=== PATIENT | female | born 1990 | race Caucasian/White ===

== ENCOUNTER 2017-03-27 10:25 | Emergency (ER) | payer OTHER ==
[~2017-03-27] VITALS: Ht 165.1 cm; Wt 99.8 kg
[2017-03-27] MEDS ORDERED: PRENATA CHEWAB1 EACH PO (10:49)
[2017-03-27] MEDS ORDERED: TAMIFLU75 MG PO (13:27)
[2017-03-27] MEDS ORDERED: ZOFRAN ODT4 MG PO (13:27)
== END 2017-03-27 13:40 | disposition home or self-care (01) ==
LOC: ED 10:25
DX: O99.512 Diseases of the respiratory system complicating pregnancy, second trimester (principal); J11.1 Influenza due to unidentified influenza virus with other respiratory manifestations; O99.332 Smoking (tobacco) complicating pregnancy, second trimester; F17.200 Nicotine dependence, unspecified, uncomplicated; Z79.899 Other long term (current) drug therapy; Z3A.20 20 weeks gestation of pregnancy
CPT/HCPCS: 80048; 81001; 85025; 87502; 96361; 96374; 99283; J2405; J7030

== ENCOUNTER 2017-04-03 07:10 | Emergency (ER) | payer OTHER ==
[~2017-04-03] VITALS: Ht 165.1 cm; Wt 99.8 kg
[~2017-04-03 07:10] MED LIST: PRENATA CHEWAB1 EACH PO; TAMIFLU75 MG PO; ZOFRAN ODT4 MG PO
[2017-04-03] MEDS ORDERED: GUAIFENESIN AC473 ML PO (07:32)
[2017-04-03] MEDS ORDERED: NORCO 5-325 TA1 EACH PO (08:12)
== END 2017-04-03 08:28 | disposition home or self-care (01) ==
LOC: ED 07:10
DX: O99.89 Other specified diseases and conditions complicating pregnancy, childbirth and the puerperium (principal); R07.81 Pleurodynia; O99.332 Smoking (tobacco) complicating pregnancy, second trimester; F17.200 Nicotine dependence, unspecified, uncomplicated; Z90.89 Acquired absence of other organs; Z79.899 Other long term (current) drug therapy; Z3A.21 21 weeks gestation of pregnancy
CPT/HCPCS: 99283

== ENCOUNTER 2017-08-07 12:58 | Inpatient (IN) | payer OTHER ==
[~2017-08-07] VITALS: Ht 165.1 cm; Wt 105.0 kg
--- NOTE | ~2017-08-07 | OR ---
[facility] [address], [place] [address] Draft DATE OF OPERATION: 08/09/2017 SURGEON: Anam Ohara DO PREOPERATIVE DIAGNOSES: 1. Intrauterine at 39 and 4 weeks gestation. 2. History of laminectomy. 3. Desires primary section. 4. Tobacco use in . 5. Marijuana use in . POSTOPERATIVE DIAGNOSES: 1. Intrauterine at 39 and 4 weeks gestation. 2. History of laminectomy. 3. Desires primary section. 4. Tobacco use in . 5. Marijuana use in . ANESTHESIA: General. ESTIMATED BLOOD LOSS: 700 mL. COMPLICATIONS: None. FINDINGS: Viable male born in the NELSON position with nuchal cord x1. Apgars 8 and 9 at 1 and 5 minutes respectively. Weight is . Normal tubes, ovaries, and uterus noted. CERTIFIED DIETARY MANAGER: Joao López MD INDICATIONS: Ms. Pagan is a pleasant 26-year-old, G2, P 0-0-1-0 with an IUP at 39 weeks 4 days gestation, presents to Labor and Delivery for scheduled primary elective section. The patient saw Dr. Odalis Colin for the majority of her and transferred to ks late in the third trimester. is complicated by history of PATIENT NAME: SELINA PAGAN OPERATIVE REPORT DATE OF : [birth year] REPORT #: [id number] PHYSICIAN: ANAM OHARA DO PCP: ODALIS COLIN MD REPORT IS CONFIDENTIAL AND NOT TO BE RELEASED WITHOUT AUTHORIZATION [facility] [address], [place] [address] Draft multiple low back surgeries including laminectomies for chronic low back issues. The patient strongly desires to avoid vaginal delivery or epidural as well as spinal anesthesia due to her prior surgeries. She strongly requests primary elective delivery under general anesthesia. These issues were discussed in detail with the patient. Records were reviewed and we discussed the risks and benefits. After the discussion, the patient still strongly feels that she would like a primary . Consents were signed. All questions were answered to the best of my ability. TECHNIQUE: The patient was taken to the operating room where a time-out was performed to confirm correct patient and correct procedure. The patient was prepped and draped in the supine position with a bump under the right hip. A Cochran catheter was inserted. ICPs were on and running and Ancef 2 g preoperatively was given per SKIP protocol. No heparin was indicated. General anesthesia was adequately established and a Pfannenstiel skin incision was made and carried down to the fascia. The fascia was nicked in the midline and fascial incision was extended bilaterally using Morales scissors. The fascia was grasped with Salome clamps, elevated, and the underlying rectus dissected off bluntly and sharply. The rectus muscles were bluntly divided in the midline and the peritoneum was bluntly entered. Peritoneal incision was extended cephalad and caudally using blunt dissection. An Dagoberto self retractor was placed. The lower uterine segment was identified and hysterotomy was performed using a surgical scalpel. The amniotic sac was ruptured and clear fluid was noted. The surgeon's hand was placed in the uterine cavity. The head elevated and lifted the maternal abdomen. Nuchal cord x1 was noted and loose. Decision was made to deliver through this. The remainder of the delivered easily with the assistance of fundal pressure. The cord was reduced and the was vigorous and cried. Oral and nasopharynx were bulb suctioned. The cord was doubly clamped and cut and the handed to the waiting pediatric team for further care. Cord blood was obtained for routine analysis and the placenta was then expressed intact with a centrally inserted three-vessel cord. The uterus was cleared of any remaining products of conception and hysterotomy was repaired using 0 Vicryl in a running locked suture. Pitocin was given after delivery of the placenta to enhance uterine involution. A second vertical imbricating suture of 0 Vicryl was applied with good imbrication noted. A small amount of oozing was noted and this was made hemostatic using Bovie electrocautery and a [id number] 0 Vicryl suture. The uterus, tubes, and ovaries were examined and found to be normal. The pelvis was irrigated and found to be hemostatic. The Dagoberto retractor was removed and again the hysterotomy was hemostatic. ACell sheet was applied to the lower uterine segment and the peritoneum was reapproximated using 2-0 Vicryl in a running nonlocked stitch. The rectus muscles were then loosely reapproximated using 0 Vicryl and three interrupted simple sutures. The rectus was then made hemostatic using electrocautery with the Bovie and Lesli powder. After hemostasis was ensured, ACell powder was applied to the rectus as well. The fascia was reapproximated using 0 Vicryl in a running nonlocked manner. Subcutaneous PATIENT NAME: SELINA PAGAN OPERATIVE REPORT DATE OF : [birth year] REPORT #: [id number] PHYSICIAN: ANAM OHARA DO PCP: ODALIS COLIN MD REPORT IS CONFIDENTIAL AND NOT TO BE RELEASED WITHOUT AUTHORIZATION [address] [place] [address] Draft tissue was made hemostatic using electrocautery with the Bovie and Lesli powder. The subcuticular space was then reapproximated using 3-0 Vicryl in a running nonlocked suture. Skin was reapproximated using surgical yao. Local anesthetic 0.25% Marcaine with epinephrine was then injected circumferentially around the Pfannenstiel incision for a total of 19 mL. The uterus was then Crede'd and minimal blood loss was noted. The patient was then awoken and taken to the PACU in good and stable condition. Sponge, needle, and instrument counts were correct x2 at the end of the procedure. Dr. López was present and participated in all portions of the procedure. Anam Ohara DO JDW/ALEXIS /[id number] Copies: ~ PATIENT NAME: SELINA PAGAN OPERATIVE REPORT DATE OF : [birth year] REPORT #: [id number] PHYSICIAN: ANAM OHARA DO PCP: ODALIS COLIN MD REPORT IS CONFIDENTIAL AND NOT TO BE RELEASED WITHOUT AUTHORIZATION
[~2017-08-07 12:58] MED LIST changes: +GUAIFENESIN AC473 ML PO; +NORCO 5-325 TA1 EACH PO
--- NOTE | 2017-08-09 08:39 | NUR ---
08/09/17 0839 Jaimie Bhandari 0823 PATIENT ARRIVES TO PACU AWAKE, BUT DROWSY. RESTING QUIETLY WITH EYES CLOSED. REPORTS SHE IS UNCOMFORTABLE, RATES PAIN AT 8/10. RESP EVEN AND UNLABORED, ON ROOM AIR AT 96-98%. DENIES NAUSEA.
== END 2017-08-11 13:40 | disposition home or self-care (01) | DRG 765 ==
LOC: FBC 08-09 05:20
PROVIDERS: ADMIT Obstetrics & Gynecology
PROC: 10D00Z1 Extraction of Products of Conception, Low, Open Approach (ICD-10-PCS; principal; 2017-08-09 06:45)
DX: O99.89 Other specified diseases and conditions complicating pregnancy, childbirth and the puerperium (principal); O99.354 Diseases of the nervous system complicating childbirth; M54.9 Dorsalgia, unspecified; O99.334 Smoking (tobacco) complicating childbirth; F17.210 Nicotine dependence, cigarettes, uncomplicated; G89.29 Other chronic pain; O69.81X0 Labor and delivery complicated by cord around neck, without compression, not applicable or unspecified; O99.324 Drug use complicating childbirth; F12.90 Cannabis use, unspecified, uncomplicated; Z3A.39 39 weeks gestation of pregnancy; Z98.890 Other specified postprocedural states; Z37.0 Single live birth
CPT/HCPCS: 01961; 36415; 85027; 99406; C1763; J0330; J0690; J1100; J1644; J1885; J2270; J2405; J2590; J2704; J2765; J3010; J7120

== ENCOUNTER 2018-04-27 14:45 | Emergency (ER) | payer OTHER ==
[~2018-04-27] VITALS: Ht 165.1 cm; Wt 104.3 kg
[~2018-04-27 14:45] MED LIST changes: +SLEEP AID25 M1 PO; +VITAMIN B-625 MG PO
--- OUTSIDE RECORDS SUMMARY | 2018-04-27 14:48 | XMS ---
PreManage Notification: SELINA PAGAN Security Safety Representative Events No recent Security Events currently on file CRITERIA MET - [facility] - Has Care Guidelines CARE PROVIDERS ROSHNI TORRES Student in an Organized Health Care 02/21/2018-Current Education/Training Program PHONE: [phone] ANAM GUERRERO Chiropractor 02/21/2018-Current PHONE: [phone] Sophie has no Care Guidelines for this patient. Care History Medical/Surgical 02/21/2018 [facility] - Patient is currently established with [facility]. If patient is seen in the ED during business hours. Please contact CHWs at [facility]. Care Recommendation: This patient has had 5 or more Emergency Department visits in the last 12 months.\T\nbsp; Patient requires education on the scope and purpose of the ED as an acute care provider not a Primary Care Provider and should not be utilized for chronic conditions.\T\nbsp; These are guidelines and the provider should exercise clinical judgment when providing care. E.D. VISIT COUNT (12 MO.) [address] [facility] TOTAL 2 NOTE: Visits indicate total known visits. ED/UCC VISIT TRACKING (12 MO.) 04/27/2018 14:46 [facility] [place] TYPE: Emergency COMPLAINT: - BACK PAIN,NON INJURY 02/21/2018 08:45 [facility] [place] TYPE: Emergency COMPLAINT: - VOMITING/13 WEEKS DIAGNOSES: - 13 weeks gestation of - Nicotine dependence, cigarettes, uncomplicated - Smoking (tobacco) complicating , first trimester - Other intermediate accountant (current) drug therapy - Vomiting of , unspecified - Mild hyperemesis gravidarum INPATIENT VISIT TRACKING (12 MO.) 08/09/2017 05:[address] [facility] [place] TYPE: [facility] COMPLAINT: - PRIMARY LOW TRANSVERSE C SECTION DIAGNOSES: - Encounter for delivery without indication - Other specified diseases and conditions complicating , childbirth and the puerperium - Other chronic pain - Cannabis use, unspecified, uncomplicated - Diseases of the nervous system complicating childbirth - Dorsalgia, unspecified - Drug use complicating childbirth - Smoking (tobacco) complicating childbirth - Single live - Labor and delivery complicated by cord around neck, without compression, not applicable or unspecified - Other specified postprocedural states - Nicotine dependence, cigarettes, uncomplicated - 39 weeks gestation of [email or web address]
[2018-04-27] MEDS ORDERED: PREDNISONE20 MG PO (15:59)
== END 2018-04-27 16:35 | disposition home or self-care (01) ==
LOC: ED 14:45
DX: M54.42 Lumbago with sciatica, left side (principal); Z87.891 Personal history of nicotine dependence; Z79.899 Other long term (current) drug therapy
CPT/HCPCS: 96372; 99283-25; J1885; J7512

== ENCOUNTER 2018-08-14 09:11 | Inpatient (IN) | payer OTHER ==
[~2018-08-14] VITALS: Ht 165.1 cm; Wt 115.0 kg
--- NOTE | ~2018-08-14 | OR ---
[facility] [address] [place], [place] [address] Draft DATE OF OPERATION: 08/21/2018 SURGEON: Anam Ohara DO PREOPERATIVE DIAGNOSES: 1. Intrauterine at 39 weeks 0 days gestation. 2. History of prior section. 3. Obesity, complicating . 4. History of prior lumbar surgery, complicating . POSTOPERATIVE DIAGNOSES: 1. Intrauterine at 39 weeks 0 days gestation. 2. History of prior section. 3. Obesity, complicating . 4. History of prior lumbar surgery, complicating . PROCEDURE PERFORMED: Repeat low transverse delivery. SUPERINTENDENT STATIONS: Joao López MD ANESTHESIA: Spinal. ESTIMATED BLOOD LOSS: 500 mL. COMPLICATIONS: None. SPECIMEN: None. FINDINGS: Viable female weighing 7 pounds 0 ounces, born in the ROT position with Apgars of 3 and 9 at one and five minutes respectively. Generally normal uterus, tubes, and ovaries. However, the lower uterine segment is somewhat thin, consistent with prior delivery and a nonexpanding lower segment hematoma noted. PATIENT NAME: SELINA PAGAN OPERATIVE REPORT DATE OF : [birth year] REPORT #: [id number] PHYSICIAN: ANAM OHARA DO PCP: ROSHNI TORRES MD REPORT IS CONFIDENTIAL AND NOT TO BE RELEASED WITHOUT AUTHORIZATION [address] [address] Draft INDICATIONS: Ms. Pagan is a pleasant 27-year-old white female, who presents for scheduled repeat low transverse delivery. complicated by prior , history of chronic low back pain, status post laminectomy x2, obesity. The patient was scheduled for repeat low transverse delivery at 39 weeks' gestation. She had previously requested general anesthesia after an extensive conversation regarding risks and benefits. However, today after meeting with anesthesia, the patient does request spinal anesthesia. Risks, benefits, and alternatives were discussed in detail with the patient. The patient understood and wishes to proceed with procedure. DESCRIPTION OF PROCEDURE: The patient was taken to the operating room, where a timeout was performed for correct patient, correct procedure. Spinal anesthesia was adequately established. The patient was then prepped and draped in supine position with a bump under her right hip. Cochran catheter was inserted. ICPs were on and running and the patient received Ancef 2 g preoperatively per skip protocol. No heparin was indicated. After confirming that spinal anesthesia was adequate, a Pfannenstiel skin incision was made incising through the prior incision. Subcu was divided down to the fascia. The fascia was nicked in the midline. Fascial incision was extended bilaterally using sharp dissection with Morales scissors. The underlying rectus muscles were then dissected bluntly and sharply and the rectus muscle divided in the midline. The peritoneum was grasped with hemostats, elevated, and the peritoneum was incised sharply. Peritoneal incision was extended sharply and bluntly in a cephalad-caudad manner. The uterus was identified. The lower uterine segment was examined and found to be fairly normal, although somewhat thin. No significant pelvic adhesions were appreciated. An Dagoberto self retractor was placed and hysterotomy was performed using a surgical scalpel. Hysterotomy was then extended bilaterally using blunt dissection and the amnion ruptured. The surgeon's hand was placed in the lower uterine segment. The head flexed and elevated in the abdomen, delivered with the assistance of fundal pressure. No nuchal cord was noted and the 's head delivered easily. The shoulders then delivered easily and the was noted to be somewhat limp at . The cord was doubly clamped and cut and the handed off quickly to the waiting pediatric team for further care. Cord blood was obtained for routine analysis as well as dissection of the cord. The placenta was then manually expressed intact with a centrally inserted three-vessel cord. Remaining products of conception and clot removed from the uterus and the uterus was noted to be firm with the addition of Pitocin per protocol. The hysterotomy was then repaired using 0 Vicryl in a running locked manner. A 2nd imbricating suture of 0 Vicryl was applied in a vertical manner with good imbrication and reapproximation. A moderate sized hematoma was noted in the lower uterine segment approximately 5 cm in diameter. This was found to be somewhat expanding and taut. The peritoneum was elevated and incised using Metzenbaum scissors and peritoneum was pushed down below the expanding hematoma. The hematoma was then made hemostatic using 0 Vicryl in a [id number]-tv-ywosu suture x2, at PATIENT NAME: SELINA PAGAN OPERATIVE REPORT DATE OF : [birth year] REPORT #: [id number] PHYSICIAN: ANAM OHARA DO PCP: ROSHNI TORRES MD REPORT IS CONFIDENTIAL AND NOT TO BE RELEASED WITHOUT AUTHORIZATION [facility] [address] [place] [id number] Draft which time the hematoma was noted to reduce in size, nonexpanding, and no longer be taut. When hemostasis was confirmed, the pelvis was irrigated using fluid, and again found to be hemostatic. The fallopian tubes and ovaries were noted to be normal. The uterus otherwise appeared normal. The Dagoberto self retractor was removed and the lower uterine segment again examined, and found to be hemostatic and the hematoma nonexpanding. ACell sheet was applied to the lower uterine segment and the peritoneum was reapproximated using 2-0 Vicryl. The rectus sheath was then reapproximated using 0 Vicryl in three interrupted sutures. The rectus was made hemostatic with combination of Bovie electrocautery, 2-0 suture, and Lesli powder. ACell powder was then applied to the rectus sheath once it had been irrigated and found to be hemostatic. The fascia was then reapproximated using 0 Vicryl in a running nonlocked manner. Subcutaneous space was reapproximated using 2-0 Vicryl in a running nonlocked manner. Skin was then reapproximated using surgical yao. The uterus was crede'd for scant amount of blood and the patient was taken to PACU in good and stable condition. Sponge, needle, and instrument count was correct x2 at the end of the procedure. Dr. López was present and participated in all portions of procedure. DO DAVID Cardenas/ALEXIS /[id number] Copies: ~ PATIENT NAME: SELINA PAGAN OPERATIVE REPORT DATE OF : [birth year] REPORT #: [id number] PHYSICIAN: ANAM OHARA DO PCP: ROSHNI TORRES MD REPORT IS CONFIDENTIAL AND NOT TO BE RELEASED WITHOUT AUTHORIZATION
[~2018-08-14 09:11] MED LIST changes: +PREDNISONE20 MG PO
--- NOTE | 2018-08-21 14:24 | NUR ---
08/21/18 1424 Jamarcus Yousif 1405) ALERT AND ORIENTED. IV PATENT AND DRESSING CDI. EDUCATION GIVEN AND PLAN OF CARE DISCUSSED. 1420) MOM BREAST FEEDING. HEAD OF BED IS ELEVATED TO 30%. NO PAIN NOTED.
--- NOTE | 2018-08-22 19:30 | PR ---
[facility] [address] [facility] [place] [facility] [place], [place] [address] Signed PP Progress Notes Datetime Report Generated by CPN: 08/22/2018 19:30 SUBJECTIVE: [id number] Pain: Within normal limits Nausea/Vomiting: Denies Flatus: Yes Bowel Movement: No Vital Signs: [id number] Vital Signs: Reviewed; Within Normal Limits EXAM: [id number] Cardiovascular: Normal Respiratory: Normal Abdomen/Uterus: Normal Lochia: Normal Vulva/Perineum: Not Done Breasts: Not Done CVA Tenderness: Normal Extremities: Normal Incision: Normal Progress: Normal Exam Comments: Fundus firm U-2 nontender, no s/sx infection IMPRESSION/PLAN/PROCEDURES: [id number] Impression: Normal progression Plan: Continue present management Progress Notes: Pt seen and examined. Doing well. Ambulating, voiding, and tolerating full diet. Pain and lochia minimal. well. No fevers/chills/other concerns. Desires d/c home tomorrow. Continue routine pp care Signing Physician: Anam Ohara DO Copies: ~ *Electronically Signed* 08/22/181929 ANAM OHARA DO PATIENT NAME: SELINA PAGAN PROGRESS NOTE DATE OF : [birth year] PHYSICIAN: ANAM OHARA DO RPT #: [id number] REPORT IS CONFIDENTIAL AND NOT TO BE RELEASED WITHOUT AUTHORIZATION
--- NOTE | 2018-08-23 07:54 | PR ---
[facility] [address] [facility] [place], [place] [address] Signed PP Progress Notes Datetime Report Generated by CPN: 08/23/2018 07:54 SUBJECTIVE: [id number] Pain: Within normal limits Nausea/Vomiting: Denies Flatus: Yes Bowel Movement: No Vital Signs: [id number] Vital Signs: Reviewed Notable Details: No sustained elevated BPs EXAM: [id number] Cardiovascular: Normal Respiratory: Normal Abdomen/Uterus: Normal Lochia: Normal Vulva/Perineum: Not Done Breasts: Not Done CVA Tenderness: Normal Extremities: Normal Incision: Normal Progress: Normal Exam Comments: Fundus firm U-2 nontender. Incision healing well. IMPRESSION/PLAN/PROCEDURES: [id number] Impression: Normal progression Plan: Discharge Progress Notes: Pt seen and examined. Doing well. Ambulating, voiding, and tolerating full diet. Pain and lochia minimal. Signing Physician: Anam Ohara DO Copies: ~ *Electronically Signed* 08/23/18 0754 ANAM OHARA DO PATIENT NAME: SELINA PAGAN PROGRESS NOTE DATE OF : [birth year] PHYSICIAN: ANAM OHARA DO RPT #: [id number] REPORT IS CONFIDENTIAL AND NOT TO BE RELEASED WITHOUT AUTHORIZATION
== END 2018-08-23 13:45 | disposition home or self-care (01) | DRG 787 ==
LOC: FBC 08-21 09:15
PROVIDERS: ADMIT Obstetrics & Gynecology
PROC: 10D00Z1 Extraction of Products of Conception, Low, Open Approach (ICD-10-PCS; principal; 2018-08-21 11:00)
DX: O34.211 Maternal care for low transverse scar from previous cesarean delivery (principal); O99.324 Drug use complicating childbirth; O99.354 Diseases of the nervous system complicating childbirth; N85.8 Other specified noninflammatory disorders of uterus; Z3A.39 39 weeks gestation of pregnancy; Z37.0 Single live birth; O32.2XX0 Maternal care for transverse and oblique lie, not applicable or unspecified; O99.89 Other specified diseases and conditions complicating pregnancy, childbirth and the puerperium; M54.5 Low back pain; O99.214 Obesity complicating childbirth; E66.9 Obesity, unspecified; O69.82X0 Labor and delivery complicated by other cord entanglement, without compression, not applicable or unspecified; F12.90 Cannabis use, unspecified, uncomplicated; G89.29 Other chronic pain; O99.334 Smoking (tobacco) complicating childbirth; F17.210 Nicotine dependence, cigarettes, uncomplicated
CPT/HCPCS: 01961; 36415; 85027; J0131; J0690; J1650; J1885; J2274; J2405; J2590; J7120

== ENCOUNTER 2022-03-24 11:20 | Emergency (ER) | payer MEDICARE, OTHER ==
[~2022-03-24] VITALS: Ht 165.1 cm; Wt 104.3 kg
[~2022-03-24 11:20] MED LIST changes: +BUSPIRONE HCL7.5 MG PO; +CYMBALTA60 MG PO; +GABAPENTIN100 MG PO; +HYDROCODON-ACE1 EA10 PO; +IBUPROFEN600 MG PO; +WOMEN'S DAILY1 EACH PO
--- OUTSIDE RECORDS SUMMARY | 2022-03-24 11:24 | XMS ---
PreManage Notification: SELINA PAGAN Security Asphalt Spreader Operator Events No recent Security Events currently on file CRITERIA MET - [facility] CARE PROVIDERS ROSHNI TORRES [facility] 02/21/2018-Current PHONE: [phone] ANAM GUERREROpractor 02/21/2018-Current PHONE: [phone] Care Guidelines exist for the following facilities: [facility] ( 04/26/2020 ) Care History Medical/Surgical 02/21/2018 [facility] - Patient is currently established with [facility]. If patient is seen in the ED during business hours. Please contact CHWs at [facility]. Care Recommendation: This patient has had [...] providing care. E.D. VISIT COUNT (12 MO.) 1 [facility] TOTAL 1 NOTE: Visits indicate total known visits. ED/UCC VISIT TRACKING (12 MO.) 03/24/2022 11:22 [facility] [place] TYPE: Emergency COMPLAINT: - ABD PAIN INPATIENT VISIT TRACKING (12 MO.) No inpatient visits to display in this time frame [email or web address]
[2022-03-24] MEDS ORDERED: BUPRENORPHINE HC8 MG SL (12:38)
[2022-03-24] MEDS ORDERED: ATOMOXETINE HCL25 MG PO (12:38)
[2022-03-24] MEDS ORDERED: PRAZOSIN HCL1 MG PO (12:38)
[2022-03-24] MEDS ORDERED: TOPIRAMATE50 MG PO (12:38)
[2022-03-24] MEDS ORDERED: DULOXETINE HCL60 MG PO (12:39)
[2022-03-24] MEDS ORDERED: HYDROXYZINE HCL25 MG PO (12:39)
[2022-03-24] MEDS ORDERED: HYDROCODON-ACE1 EA10 PO (14:47)
[2022-03-24] MEDS ORDERED: ONDANSETRON ODT4 MG PO (14:48)
== END 2022-03-24 15:22 | disposition home or self-care (01) ==
LOC: ED 11:20
DX: N83.201 Unspecified ovarian cyst, right side (principal); Z79.899 Other long term (current) drug therapy
CPT/HCPCS: 36415; 74177; 80053; 81003; 83690; 84703; 85025; 96375; 99284-25; J1885; J2405; Q9967

== ENCOUNTER 2023-03-04 18:45 | Observation (INO) | payer MEDICARE, OTHER ==
[~2023-03-04] VITALS: Ht 165.1 cm; Wt 98.9 kg
--- NOTE | ~2023-03-04 | OR ---
[facility] [address], [place] [address] Draft DATE OF OPERATION: 03/05/2023 SURGEON: Stephy Rios MD PREOPERATIVE DIAGNOSES: 1. Acute calculous cholecystitis. 2. Obesity. POSTOPERATIVE DIAGNOSES: 1. Acute calculous cholecystitis. 2. Obesity. PROCEDURE: 1. Laparoscopic cholecystectomy with intraoperative cholangiogram. 2. Surgeon-directed fluoroscopy. ANESTHESIA: General endotracheal, Stephy Inman CRNA and local 10 mL of 0.25% Marcaine with epinephrine. INDICATION: This 32-year-old obese woman presented to the emergency room yesterday with complaints of epigastric and right subcostal pain upper tract and nausea and vomiting. She is found to have tenderness in right subcostal area. She previously was diagnosed with gallstones on February 15, 2023, under the direction of GERA Smith. A plan for cholecystectomy was not yet outlined from what I gather. She was admitted and given intravenous fluid resuscitation, IV antibiotics, some parenteral pain medication and is now ready to undergo cholecystectomy preferred by laparoscopic approach. The risk of bleeding, infection, bile duct injury, need for open procedure and other unforeseen complications was reviewed with her in detail. She understands and wished to proceed. FINDINGS: The gallbladder was thickened and inflamed. There was no sign of gangrene or necrosis. The liver was normal. Cholangiogram was normal as well with no filling defects or other abnormality. Complete cholecystectomy was accomplished safely. The gallbladder had multiple yellow multifaceted gallstones and gallstone debris. Of note, the cystic duct on cholangiogram inserted to the left side of the common bile duct and was anomalous in that regard, but there were no filling defects or other problems. DESCRIPTION OF PROCEDURE: PATIENT NAME: SELINA PAGAN OPERATIVE REPORT DATE OF : [birth year] REPORT #: [id number] PHYSICIAN: STEPHY RIOS MD PCP: YAIMA GARZA NP REPORT IS CONFIDENTIAL AND NOT TO BE RELEASED WITHOUT AUTHORIZATION [facility] [address], [place] [address] Draft The patient was brought to the operating room, given a general endotracheal anesthetic. Preoperative antibiotic Ancef was given in the operating room based on scheduled dosing. After satisfactory general endotracheal anesthesia, the abdomen was prepared with a chlorhexidine solution and draped sterilely. She had previous umbilical hernia with implantation of mesh. An infraumbilical incision was made 2 cm away from the inferior aspect of the incision from the past. The abdomen was entered with an open Molina cannula technique and pneumoperitoneum achieved to a level of 14 mmHg with carbon dioxide gas. Intra-abdominal inspection showed no sign of ascites or carcinomatosis. There was mild scarring of the surface of the transverse colon. The liver itself was surprisingly normal without sign of fatty infiltration. Three additional trocars were placed in usual configuration in the subxiphoid, right midclavicular, and right anterior axillary line. Gallbladder was grasped and elevated cephalad. Adhesions to the undersurface were taken down with blunt electrocautery dissection revealing underlying inflamed gallbladder. Lateral retraction of the gallbladder allowed for dissection of the triangle of Calot, dissecting free ultimately identifying the cystic duct and cystic arterial branches. A clip was applied across gallbladder cystic duct junction and a transverse choledochotomy made in the cystic duct. Egress of clear bile was noted. Using the Sanders type cholangiocatheter, intraoperative cholangiography was undertaken showing free flow of contrast in biliary tree with prompt emptying into the duodenum. The cystic duct was anonymously inserted into the medial aspect of the common bile duct. Additional injection allowed for visualization of common hepatic duct and biliary radicles. Photographs were taken. Catheter was removed and the cystic duct was triply clipped and divided. The gallbladder was then dissected free in a retrograde fashion using electrocautery. Gallbladder was placed in an endobag and extracted through the infraumbilical port site opened on the back table and found to have dominant large cholesterol yellow stone, but multiple shards of stone and debris as well. There was no sign of neoplasm. Irrigation was undertaken in subhepatic space with no sign of bile leak, bleeding or other problems. The trocars removed under direct visualization showing no sign of bleeding. The infraumbilical fascial incision was reapproximated with interrupted 0 Vicryl suture and additional application of a running 0 PDS suture. 10 mL of 0.25% Marcaine with epinephrine injected locally. Subcutaneous tissue of the infraumbilical incision was reapproximated with interrupted 3-0 Vicryl and skin closed with interrupted 3-0 Vicryl. Steri-Strips were applied to each site. The patient was ultimately extubated and transferred to the recovery room in good condition having suffered no complication. Sponge, needle, and instrument counts reported as correct x3. Stephy Rios MD PATIENT NAME: SELINA PAGAN OPERATIVE REPORT DATE OF : [birth year] REPORT #: [id number] PHYSICIAN: STEPHY IROS MD PCP: YAIMA GARZA NP REPORT IS CONFIDENTIAL AND NOT TO BE RELEASED WITHOUT AUTHORIZATION [facility] [address] [place] [place] [address] Draft /[facility] /[id number] cc: GERA Smith MD [place] [facility] Copies: ~ PATIENT NAME: SELINA PAGAN OPERATIVE REPORT DATE OF : [birth year] REPORT #: [id number] PHYSICIAN: STEPHY RIOS MD PCP: YAIMA GARZA NP REPORT IS CONFIDENTIAL AND NOT TO BE RELEASED WITHOUT AUTHORIZATION
--- NOTE | ~2023-03-04 | HP ---
[facility] [address], [place] [address] Draft ADMISSION DATE: 03/04/2023 REASON FOR ADMISSION: Acute calculous cholecystitis. HISTORY OF PRESENT ILLNESS: This obese, BMI 38.3, white woman presented to the emergency room [facility] on with 3 hours complaints of right upper abdominal pain and associated nausea and vomiting. The patient was diagnosed on or about February 15 by GERA Smith to have gallstones related to similar such symptoms. The patient was under the impression that she should "watch her diet." The idea of surgery was uncertain to the patient. After thorough evaluation by Dr. De La Torre upon presentation included lab studies and repeat ultrasound, which confirmed a single large gallstone with thickening of the gallbladder wall. A CBC showing a white count of 13.2, hematocrit of 36.8, platelets of 232,000. A Chem profile was essentially normal, though her potassium slightly low at 3.3. Magnesium was 1.6. Liver enzymes mildly elevated. AST 40, ALT 90, bilirubin 0.2, alkaline phosphatase 71. Her lipase was 29. A toxicology screen was obtained, but results not yet available as there was no specimen received. Urinalysis similarly was not available. Her INR was 0.99. A chest x-ray was performed, which was normal and abdominal ultrasound repeated despite that performed on February 15 on this occasion showing gallstones with gallbladder wall thickening, mild to moderate distention and negative Vasquez's sign at that time and persistent intrahepatic and extrahepatic ductal dilatation with common bile duct of 8 mm. SOCIAL HISTORY: She has two children, ages four and five. She is . She does not work outside the home. She lives in [place], [place]. She does not smoke. Denies alcohol use, but does use marijuana on a routine basis. PAST MEDICAL HISTORY: Her other medical issues include degenerative disc disease. She has an intrauterine device for control method. PAST SURGICAL HISTORY: She has had tonsillectomy, laminectomy, and urethral dilation in the past. ALLERGIES: She has no known drug allergies. PATIENT NAME: SELINA PAGAN HISTORY AND PHYSICAL DATE OF : [birth year] REPORT #: [id number] PHYSICIAN: STEPHY RIOS MD PCP: YAIMA GARZA NP REPORT IS CONFIDENTIAL AND NOT TO BE RELEASED WITHOUT AUTHORIZATION [facility] [address], [place] [address] Draft MEDICATIONS: Her medications at home include are Zofran. Other medicines include topiramate, buprenorphine, prazosin, hydroxyzine, tamsulosin, vitamin D and buspirone. REVIEW OF SYSTEMS: She currently is feeling somewhat better. Does not have severe subcostal pain as she had before. Nausea and vomiting seems to have abated. She has no hoarseness or sore throat. PHYSICAL EXAMINATION: GENERAL: An obese, but cooperative white woman who is alert and oriented. BMI is 38.3. HEENT: Trachea is midline. Mucous membranes are slightly dry. CHEST: Shows normal respiratory excursion without wheeze or rhonchi. HEART: Regular without murmur. ABDOMEN: Obese, but soft. There is a faint incision at the site of the umbilicus from prior hernia repair that I performed in 2019. EXTREMITIES: Show no clubbing, cyanosis, or edema. LABORATORY DATA: As previously noted. ASSESSMENT: The patient has had a recurrent bout of right upper abdominal pain, at this time associated with persistent nausea and vomiting. She does have slight tenderness and findings are consistent with acute calculous cholecystitis. I explained the pathophysiology of this problem to her and recommendation of treatment to include cholecystectomy preferred by laparoscopic approach. The risk of bleeding, infection, bile duct injury, need for open procedure, need for other indicated procedures were reviewed in detail. She understands and wished to proceed. It is notable that although her common bile duct is dilated, her liver enzymes are normal. The possibility of an intrahepatic or bile duct obstruction or stone remains possible and she may require laparoscopic common duct clearance as well. We will admit to the hospital for fluid resuscitation, IV antibiotics, anticipating surgery tomorrow on , most likely about 1:00 p.m. PATIENT NAME: SELINA PAGAN HISTORY AND PHYSICAL DATE OF : [birth year] REPORT #: [id number] PHYSICIAN: STEPHY RIOS MD PCP: YAIMA GARZA NP REPORT IS CONFIDENTIAL AND NOT TO BE RELEASED WITHOUT AUTHORIZATION [facility] [address], [place] [address] Draft MD NANCY Schilling/ALEXIS /[id number] cc: GERA Smith Dr. Copies: ~ PATIENT NAME: SELINA PAGAN HISTORY AND PHYSICAL DATE OF : [birth year] REPORT #: [id number] PHYSICIAN: STEPHY RIOS MD PCP: YAIMA GARZA NP REPORT IS CONFIDENTIAL AND NOT TO BE RELEASED WITHOUT AUTHORIZATION
[~2023-03-04 18:45] MED LIST changes: +ATOMOXETINE HCL25 MG PO; +BUPRENORPHINE HC8 MG SL; +DULOXETINE HCL60 MG PO; +HYDROXYZINE HCL25 MG PO; +ONDANSETRON ODT4 MG PO; +PRAZOSIN HCL1 MG PO; +TOPIRAMATE50 MG PO
[2023-03-04] MEDS ORDERED: TAMSULOSIN HCL0.4 MG PO (18:57)
[2023-03-04 19:29] LABS: BASOPHILS 0.4 % (0-2); EOSINOPHILS 0.8 % (0-6); HEMATOCRIT 36.8 % (35.0-50.0); HEMOGLOBIN 12.5 g/dL (12.0-18.0); LYMPHOCYTES 10.2 % (24-44); MCH 28.2 (27-36); MONOCYTES 6.1 % (0-12); NEUTROPHILS 82.5 % (39-80); PLATELET COUNT 232 K/uL (140-440); RBC 4.44 M/ul (4.3-5.7); RDW 12.8 (10.5-15.0)
[2023-03-04 19:40] LABS: ALBUMIN/GLOBULIN RATIO 1.25 (1.1-2.4); ANION GAP 14.3 (7-21); BILIRUBIN, TOTAL 0.2 ng/dL (0.2-1.0); BUN/CREATININE RATIO 9.09 (6.0-28.6); CALCIUM 8.7 mg/dL (8.5-10.1); CREATININE, SERUM 0.77 mg/dL (0.55-1.02); MAGNESIUM 1.6 mg/dL (1.8-2.4); POTASSIUM 3.3 mmol/L (3.5-5.1); PROTEIN, TOTAL 7.2 g/dL (6.4-8.2)
[2023-03-04 20:53] LABS: INR 0.99 (0.80-1.30); PARTIAL THROMBOPLASTIN TIME 27.9 Sec (22.9-41.3); PROTIME 12.7 Sec (11.2-14.2)
--- NOTE | 2023-03-04 21:09 | NUR ---
dr escobar hereasking about this pt
--- NOTE | 2023-03-04 22:44 | NUR ---
2144 - Pt admitted from ER via W?C, transferred self to bed. Aware of NPO status for possible am surgery. Cooperative with assessments. SL LAC 20G intact, flushed easily. Aware of need for UA. denies needing to go to br at [facility]. IVF sarted as per orders, po meds and Heparin SC given. med teachaing done, pt knowledgeable of home meds, heparin sc and IVF. no c/o pain. had 50cc yellow colored emesis.
[2023-03-04 22:53] VITALS: BP 108/56
--- NOTE | 2023-03-04 23:25 | NUR ---
PT REPORT RECEIVED FROM ARTURO GUERRERO, [facility] C[facility] OF PT
--- NOTE | 2023-03-04 23:30 | NUR ---
RN TO BEDSIDE, PT ASLEEP, AWAKEN, DROWSY BUT ALERT, SKIN MOIST AND PT STATES SHE IS COLD, ASSISTED UP TO BR TO VOID, UA/UDS COLLECTED AND SENT TO LAB, NEW GOWN GIVEN, BACK TO BED, SKIN COOL, WARM BLANKETS GIVEN, PT DENIES HAVING PAIN AT THIS TIME, ASSESSMENT ASSESSMENT COMPLETED, IV PATENT IN RIGHT AC, LR INFUSING WELL AT 85ML/HR, PT BACK TO SLEEP, RESP EVEN AND REG. SIDE RAILS UP X 2.
[2023-03-05 00:08] LABS: BILIRUBIN, URINE NEGATIVE (negative); BLOOD/HGB, URINE NEGATIVE (Negative); KETONE, URINE >=80 (Negative); LEUK ESTERASE, URINE NEGATIVE (negative); NITRITE, URINE NEGATIVE (negative)
[2023-03-05 00:16] LABS: AMPHETAMINES, URINE NEGATIVE (NEGATIVE); BARBITURATES, URINE NEGATIVE (NEGATIVE); BENZODIAZEPINE, URINE NEGATIVE (NEGATIVE); BUPRENORPHINE, URINE POSITIVE (NEGATIVE); CANNABINOID, URINE POSITIVE (NEGATIVE); COCAINE, URINE NEGATIVE (NEGATIVE); ECSTASY, URINE NEGATIVE (NEGATIVE); FENTANYL, URINE NEGATIVE (NEGATIVE); METHADONE, URINE NEGATIVE (NEGATIVE); OPIATES, URINE NEGATIVE (NEGATIVE); OXYCODONE, URINE NEGATIVE (NEGATIVE); PHENCYCLIDINE, URINE NEGATIVE (NEGATIVE)
--- NOTE | 2023-03-05 01:10 | NUR ---
PT ASLEEP, RESP EVEN AND REG.
[2023-03-05 02:25] VITALS: BP 115/63
--- NOTE | 2023-03-05 02:25 | NUR ---
PT AWAKEN FOR VS, DROWSY BUT ALERT, SKIN MOIST, VS DONE, AFEBRILE, PT DENIES NEED FOR PAIN MED AT THIS TIME. IV INFUSING WELL, PT WITHOUT REQUESTS.
--- NOTE | 2023-03-05 04:25 | NUR ---
PT ASLEEP, RESP EVEN AND REG.
[2023-03-05 05:34] VITALS: BP 118/71
--- NOTE | 2023-03-05 05:34 | NUR ---
VS DONE PER [employer]ET[employer] CONSULTANT AND ARTURO RN, PT ALERT, WITHOUT COMPLAINTS AT THIS TIME, UP TO BR TO VOID.
[2023-03-05 05:35] LABS: HEMOGLOBIN 12.5 g/dL (12.0-18.0)
[2023-03-05 05:39] LABS: BASOPHILS 0.2 % (0-2); EOSINOPHILS 0.1 % (0-6); HEMATOCRIT 37.2 % (35.0-50.0); LYMPHOCYTES 13.6 % (24-44); MCH 27.9 (27-36); MCHC 33.6 g/dl (30-36); MCV 82.8 fl (81-99); MONOCYTES 5.2 % (0-12); NEUTROPHILS 80.9 % (39-80); PLATELET COUNT 223 K/uL (140-440); RBC 4.49 M/ul (4.3-5.7); RDW 12.9 (10.5-15.0)
[2023-03-05 05:49] LABS: ALBUMIN 3.2 g/dL (3.4-5.0); ALBUMIN/GLOBULIN RATIO 1.1 (1.1-2.4); ANION GAP 12.9 (7-21); BILIRUBIN, TOTAL 0.4 ng/dL (0.2-1.0); BUN/CREATININE RATIO 10.44 (6.0-28.6); CREATININE, SERUM 0.67 mg/dL (0.55-1.02); POTASSIUM 3.9 mmol/L (3.5-5.1); PROTEIN, TOTAL 6.1 g/dL (6.4-8.2)
--- NOTE | 2023-03-05 09:09 | NUR ---
CAME TO CHECK ON PT AT 0715 PT WAS ASLEEP WITH EVEN UNLABORED BREATHING. RECIEVED REPORT AT 0726 FROM NURSE. CURRENTLY PT IS AWAKE A+O TIMES 4. PT IS LAYING IMN BED SEMI ALVARADO POSITION. NPO INSTRUCTIONS WERE GIVEN TO PT AT 0845. MEDS GIVEN. NO OTHER CARES OR REQUESTS AT THIS TIME. CALL LIGHT WITHIN REACH
[2023-03-05 09:53] VITALS: BP 126/78
--- NOTE | 2023-03-05 10:52 | NUR ---
pt instructed on chlorhexidine prep and given written instructions. pt is currently in bathroom prepping
[2023-03-05] MEDS ORDERED: NURTEC ODT75 MG PO (11:43)
[2023-03-05] MEDS ORDERED: VITAMIN D21250 MCG PO (11:43)
[2023-03-05] MEDS ORDERED: PRAZOSIN HCL2 MG PO (11:44)
[2023-03-05] MEDS ORDERED: BUSPIRONE HCL10 MG PO (11:44)
--- NOTE | 2023-03-05 12:33 | NUR ---
PT LEAVES VIA GURNEY WITH OR STAFF TO SURGERY.
--- NOTE | 2023-03-05 14:45 | NUR ---
03/05/23 1440 Mabel Johnson 1439- PT ARRIVES TO PACU REACTIVE TO VOICE. PT'S ARMS ARE TENSE. ATTEMPTED TO REORIENT PT. PT APPEARS TO BE SHAKING. ASKED PT IF SHE IS COLD AND SHE IS ABLE TO NOD. WARM BLANKETS AND WARM AIR APPLIED. RESP RAPID AND SHALLOW. OXYGEN SAT HIGH 90'S TO 100% ON 10L VIA MASK.
[2023-03-05] MEDS ORDERED: TYLENOL EXTRA500 MG PO (14:53)
[2023-03-05] MEDS ORDERED: MOTRIN IB200 MG PO (14:53)
--- NOTE | 2023-03-05 15:55 | NUR ---
PT CAME BACK FROM DAY SURGERY. HANDOFF REPORT FROM NURSE LYNCH. PT IS CURRENTLY AWAKE A+O TIMES 4. PT VITALS PULSE 78 [id number] BP132/79 MAP OF 92 AND RESPIRATIONS 18. PT LUNG SOUNDS CLEAR UPON ASSESSMENT BOWEL TONES HYPOACTIVE. PT HAS ALREADY VOIDED TWICE ALREADY ONCE WITH PACU AND ONCE WITH MEDSURG WITH A VOLUME OF 400ML PT INCISIONS HAVE STERISTRIPS WITH DRAINAGE FROM SURGERY BUT CURRENTLY DRY NO LEAKAGE. PT IS IN ROOM WITH FAMILY AND BACK ON LR AT 85ML/HR. PT REQUESTED JELLO APPLE JUICE AND BROTH. PATIENT HAS NO SIGNS OF N/V. PAIN IS CURRENTLY AT 3/10 AND TOLERABLE. PAIN IS IN ABDOMEN AND CHRONIC BACK ISSUES FROM PREVIOUS SURGERIES WILL CONTINUE TO MONITOR AND ASSESS DUE TO PT POSSIBLE DISCHARGE IF PARAMETERS ARE MET
[2023-03-05 16:29] VITALS: BP 120/65
--- NOTE | 2023-03-05 16:30 | NUR ---
PT EATS JELLO, BEEF BROTH AND DRINKS APPLE JUICE. PT TOLERATING THIS WELL. DENIES NAUSEA. REPORTS PAIN TOLERABLE AT THIS TIME.
--- NOTE | 2023-03-05 17:08 | NUR ---
PT ASSESSED AND NO ABNORMAL FINDINGS. INCISIONS STILL HAVE SAME OLD DRY DRAINAGE FROM SURGERY. VITALS ARE STABLE. PT HAS EATEN JELLO SOME BROTH AND APPLE JUICE. PT TOLERATED WELL. PT IS VOIDING WITH NO ISSUES.
[2023-03-05 17:32] VITALS: BP 122/69
[2023-03-05 18:38] VITALS: BP 122/65
--- NOTE | 2023-03-07 13:12 | PATH ---
[facility] [address] [place], [place] [address] Signed SPECIMEN(S): A GALLBLADDER AND STONES SPECIMEN SOURCE: A. GALLBLADDER AND STONES CLINICAL HISTORY: Acute cholecystitis FINAL PATHOLOGIC DIAGNOSIS: Gallbladder, cholecystectomy: - Chronic calculous cholecystitis - One reactive lymph node BRP MICROSCOPIC EXAMINATION: Histologic sections of all submitted blocks are examined by light microscopy. These findings, together with the gross examination, support the pathologic diagnosis. GROSS DESCRIPTION: The specimen, labeled and designated "juancarlos Pagan," is received in formalin and consists of Specimen: Previously opened gallbladder. Dimensions: 8.5 x 3.3 cm. Serosa: Green and smooth. Cystic Duct: Inked, unobstructed. Calculi: Membranous yellow-brown gallstones within the gallbladder and within the container that range in size from 0.1 to 2.1 cm in greatest dimension. Mucosa: Green and velvety. Wall thickness: 0.7 cm. Lymph node: One possible pericystic lymph node that measures 1.8 cm in greatest dimension is identified. Possible lymph node is sectioned and entirely submitted. Additional: None. Budder sections are submitted in (A1-A2). JS (under the direct supervision of a pathologist) The Gross Description was prepared using a voice recognition system. The report was reviewed for accuracy; however, sound-alike word errors, addition and/or deletions may occur. If there is any question about this report, please contact Client Services. PATIENT NAME: SELINA PAGAN PATHOLOGY DATE OF : [birth year] REPORT #: [id number] PHYSICIAN: ALPHONSO TALAMANTES PCP: YAIMA GARZA NP REPORT IS CONFIDENTIAL AND NOT TO BE RELEASED WITHOUT AUTHORIZATION [facility] [address] [facility] [place], [place] [address] Signed ADDITIONAL NOTES: Immunohistochemical and/or in situ hybridization studies if performed in this case included appropriate positive controls that reacted as expected. This test was developed and its performance characteristics determined by [facility]. It has not been cleared or approved by the U.S. Food and Drug Administration. The FDA has determined that such clearance or approval is not necessary. This test is used for clinical purposes. It should not be regarded as investigational or for research. [facility] is certified under the Clinical Laboratory Improvement Amendments of 1988 (CLIA) as qualified to perform high complexity clinical laboratory testing. PERFORMING LABORATORY: Technical component was performed by [facility], [address] [place] [id number] (CLIA# [id number]). Professional interpretation was performed by [email or web address], [address] [place] [address] (CLIA#:[id number]). Diagnostician: Lawson Perez MD Pathologist Electronically Signed 03/07/2023 Copies: ~ PATIENT NAME: SELINA PAGAN PATHOLOGY DATE OF : [birth year] REPORT #: [id number] PHYSICIAN: ALPHONSO TALAMANTES PCP: YAIMA GARZA NP REPORT IS CONFIDENTIAL AND NOT TO BE RELEASED WITHOUT AUTHORIZATION
== END 2023-03-05 19:12 | disposition home or self-care (01) ==
LOC: ED 18:45 → MS 18:46
PROVIDERS: Internal Medicine; ADMIT Surgery; ATTEND Surgery
PROC: 0FT44ZZ Resection of Gallbladder, Percutaneous Endoscopic Approach (ICD-10-PCS; principal; 2023-03-05 13:00)
DX: K80.12 Calculus of gallbladder with acute and chronic cholecystitis without obstruction (principal); Z79.899 Other long term (current) drug therapy
CPT/HCPCS: 00790; 36415; 71045; 74300; 76705; 80053; 80307; 81003; 83690; 83735; 84703; 85025; 85610; 85730; 96361; 96374; 96375; 99285-25; J0131; J0330; J0461; J0690; J1100; J1644; J1790; J1885; J2250; J2405; J2704; J2765; J3010; J3475; J3490; J7121; Q0177; Q9967

== ENCOUNTER 2023-09-03 19:07 | Emergency (ER) | payer OTHER, MEDICARE ==
[~2023-09-03] VITALS: Ht 165.1 cm; Wt 100.0 kg
[~2023-09-03 19:07] MED LIST changes: +AMBIEN5 MG PO; +AMOX TR-K CLV1 EAC1 PO; +BUSPIRONE HCL10 MG PO; +FLUVOXAMINE MAL50 MG PO; +MACROBID 100 M100 MG PO; +MOTRIN IB200 MG PO; +NURTEC ODT75 MG PO; +PRAZOSIN HCL2 MG PO; +TAMSULOSIN HCL0.4 MG PO; +TYLENOL EXTRA500 MG PO; +VITAMIN D21250 MCG PO
[2023-09-03] MEDS ORDERED: KETOROLAC TROMETHAMINE 60 MG/2 ML VIAL IM ONE (19:45)
[2023-09-03] MEDS ORDERED: MELOXICAM15 MG PO (20:14)
[2023-09-03 20:38] VITALS: BP 124/77
== END 2023-09-03 20:41 | disposition home or self-care (01) ==
LOC: ED 19:07
DX: S90.32XA Contusion of left foot, initial encounter (principal); W20.8XXA Other cause of strike by thrown, projected or falling object, initial encounter; Z79.899 Other long term (current) drug therapy
CPT/HCPCS: 73630; J1885